=== PATIENT | male | born 1960 | race Caucasian/White ===

== ENCOUNTER 2023-05-28 07:45 | Day surgery (SDC) | payer OTHER ==
[2023-05-23 15:16] VITALS: BMI 44.7
[~2023-05-28 07:45] MED LIST: ALPRAZolam 0.25 MG TAB PO PRN; ALPRAZolam 0.5 MG TAB PO PRN; ASPIRIN 325 MG TAB PO STA; HEPARIN SODIUM,PORCINE (1 ML) 2,500 UNIT in SODIUM CHLORIDE 0.9% 250 ML IRRIGATION PRN; HEPARIN SODIUM,PORCINE 10,000 UNIT in SODIUM CHLORIDE 0.9% 1,000 ML IRRIGATION PRN; NITROGLYCERIN SL TABS 0.4 MG TAB SUBLINGUAL PRN; SODIUM CHLORIDE 0.9% 1,000 ML in EMPTY BAG 1 BAG IV SCH
[2023-05-28 08:27] VITALS: RESP 18; TEMP 99.3
[2023-05-28] MEDS ORDERED: VERAPAMIL 2.5 MG/ML 2 ML AMP ONE ×2 (08:44→09:41)
[2023-05-28] MEDS ORDERED: LIDOCAINE 1% INJ 10MG/ML (20 ML MDV) ONE ×2 (08:44→09:41)
[2023-05-28 09:00] LABS: African American GFR (CKD) >90 (>60 ml/min/1.73 sqM); Anion Gap 11 mmol/L; Blood Urea Nitrogen 11 mg/dL (9-20); Calcium 8.9 mg/dL (8.4-10.2); Carbon Dioxide 27 mmol/L (22-30); Chloride 93 mmol/L (98-107); Glucose 250 mg/dL (74-99); Non-African American GFR(CKD) >90 (>60 ml/min/1.73 sqM); Potassium 3.3 mmol/L (3.5-5.1); Sodium 131 mmol/L (137-145)
[2023-05-28] MEDS ORDERED: MIDAZOLAM 2 MG/2 ML VIAL IVP ONE (09:53)
[2023-05-28] MEDS ORDERED: LIDOCAINE 1% INJ 10MG/ML (20 ML MDV) SQ ONE (09:56)
[2023-05-28] MEDS ORDERED: HEPARIN SODIUM 1,000 UN/ML (10ML VL) ONE (09:57)
[2023-05-28] MEDS ORDERED: VERAPAMIL SYRINGE (5 MG/10 ML) INTRAARTER ONE (09:58)
[2023-05-28] MEDS ORDERED: IOPAMIDOL-370 100ML BTL INJ ONE (10:10)
[2023-05-28] MEDS ORDERED: RX INFO: IV CONTRAST WAS GIVEN 1 EACH MISC MISCELLANE PRN (10:11)
[2023-05-28] MEDS ORDERED: SODIUM CHLORIDE 0.9% 1,000 ML IV SCH (10:15)
--- NOTE | 2023-05-28 10:15 | P.PCN ---
Date of Procedure: 05/28/23 Operative Findings: CARDIAC CATHETERIZATION PERFORMING PHYSICIAN: Petar Sanchez MD, RPVI PROCEDURE PERFORMED: 1. Selective right and left coronary angiogram 2. Left heart catheterization 3. Ultrasound-guided access of the right radial artery INDICATION: Unstable angina COMPLICATION: None APPROACH: Right radial artery LEVEL OF SEDATION: Moderate with a sedation length of 14 minutes PROCEDURE DESCRIPTION: After obtaining an informed consent, the patient was brought to cardiac nursery laborer. Local anesthesia was performed using lidocaine subcutaneously. The right radial artery was cannulated using Seldinger technique, the guidewire passed easily, following that we advanced a 5-Guyanese sheath dilator assembly, the wire and dilator were removed and sheath was flushed. Following that, 2 mg of verapamil along with 5000 unit heparin were given. Selective right and left coronary angiogram using a 6-Guyanese JR4 and JL 3.5 catheters. Following that we did left heart catheterization using 6-Guyanese pigtail catheter. The procedure was completed there was no complication. SELECTIVE CORONARY ANGIOGRAM: The right coronary artery: Large caliber vessel and a dominant vessel. The RCA has mild disease only Left main: Is angiographically normal. The left circumflex: Large caliber vessel nondominant vessel. Its angiographically normal. Gives rises into the first and second obtuse marginal branches and both appeared to be angiographically normal The left anterior descending artery: Large caliber vessel. Its angiographically normal. Gives rises into the first and second diagonal branches have mild disease only HEMODYNAMICS: The LVEDP was 5 mmHg was no significant gradient across aortic valve CONCLUSION: 1. Mild nonobstructive CAD 2. Normal left-sided filling POSTPROCEDURE MANAGEMENT: Medical treatment
[2023-05-28 12:46] VITALS: PULSE 74
[2023-05-28 13:37] VITALS: BP 124/78
== END 2023-05-28 14:20 | disposition home or self-care (01) ==
LOC: CATHCVL 07:45
PROVIDERS: ATTEND Internal Medicine Interventional Cardiology
DX: I25.110 Atherosclerotic heart disease of native coronary artery with unstable angina pectoris (principal); I10 Essential (primary) hypertension; E78.5 Hyperlipidemia, unspecified; E11.9 Type 2 diabetes mellitus without complications; Z79.899 Other long term (current) drug therapy
CPT/HCPCS: 93458; 80048; C1769; C1894; J2250; J2001; J1644; Q9967